=== PATIENT | female | born 1945 | race Caucasian/White ===

== ENCOUNTER 2017-02-02 20:36 | Emergency (ER) | payer BC, MEDICARE ==
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
[2017-02-02] MEDS ORDERED: HYDROCODONE/APAP 5/325MG TABLET PO ONE (22:38)
[2017-02-02] MEDS ORDERED: CYCLOBENZAPRINE 10MG TABLET PO ONE (22:38)
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
== END 2017-02-02 22:47 | disposition home or self-care (01) ==
LOC: ER 20:36
DX: S16.1XXA Strain of muscle, fascia and tendon at neck level, initial encounter (principal); M47.812 Spondylosis without myelopathy or radiculopathy, cervical region; R20.2 Paresthesia of skin; V43.62XA Car passenger injured in collision with other type car in traffic accident, initial encounter
CPT/HCPCS: 70450; 72125; 99283; 99284

== ENCOUNTER 2017-12-28 21:21 | Observation (INO) | payer BC, MEDICARE ==
--- NOTE | 2017-12-28 21:43 | Emergency Department Record ---
History of Present Illness - General Chief Complaint: Palpitations Stated Complaint: AFIB Time Seen by Provider: 12/28/17 21:31 Source: Patient Mode of Arrival: Ambulatory Limitations: No limitations - History of Present Illness Initial Comments: The patient is here due to the onset of irregular heart beating about an hour ago. She does have mild SOB with exertion but denies any pain. She has a hx of similar issues and last was in Afib about 6 months ago. She denies any hx of CAD and did have a neg heart catheterization about 8 years ago. The patient states she has had Afib about 5 times and has always converted on her own. MD Complaint: Atrial fibrillation, "Heart racing", Palpitations Onset/Timin -: Minutes(s) Context: Occurred during rest Arrythmia History: Atrial fibrillation, Other Associated Symptoms: Shortness of breath Treatments Prior to Arrival: Beta-alton - Related Data Allergies Allergy/AdvReac Type Severity Reaction Status Date / Time ciprofloxacin [From CIPRO] Allergy Unknown HIVES Verified 02/02/17 20:48 ciprofloxacin HCl Allergy Unknown HIVES Verified 02/02/17 20:48 [From CIPRO] clindamycin [CLINDAMYCIN] Allergy Unknown HIVES Verified 02/02/17 20:48 ibuprofen [From MOTRIN] Allergy Unknown VOMITING Verified 02/02/17 20:48 nitrofurantoin Allergy Unknown HIVES Verified 02/02/17 20:48 macrocrystalline [From MACRODANTIN] Penicillins [PENICILLINS] Allergy Unknown HIVES Verified 02/02/17 20:48 propoxyphene napsylate Allergy Unknown HIVES Verified 02/02/17 20:48 [From DARVOCET-N 100] Vdciyht-Agp-Dah Reductase Allergy Unknown HIVES Verified 02/02/17 20:48 Inhibitor [PPCALWH-ETV-KJV REDUCTASE INHIBITOR] tramadol HCl [From ULTRAM] Allergy Unknown HIVES Verified 02/02/17 20:48 Travel Screening - Travel/Exposure Within Last 30 Days Have you traveled within the last 30 days?: No - Travel Symptoms Symptom Screening: None Review of Systems Constitutional: Denies: Chills, Fever Eyes: Denies: Eye discharge ENT: Denies: Throat pain Respiratory: Denies: Cough, Dyspnea Cardiovascular: Reports: Arrhythmia. Denies: Chest pain Endocrine: Denies: Fatigue Gastrointestinal: Denies: Abdominal pain Genitourinary: Denies: Dysuria Musculoskeletal: Denies: Arthralgia Skin: Denies: Bruising Past Medical History - SOCIAL HISTORY Smoking Status: Former smoker Alcohol Use: None Drug Use: None - RESPIRATORY Hx Respiratory Disorders: Yes Hx Sleep Apnea: Yes Hx of CPAP: Yes Comment:: chronic sinusitis - CARDIOVASCULAR Hx Cardio Disorders: Yes Hx Cardiac Cath: Yes (2009) Hx Edema: Yes (right ankle) Hx Hypertension: Yes Hx Irregular Heartbeat: Yes (AFIB) - NEURO Hx Neuro Disorders: No - GI Hx GI Disorders: Yes Hx Reflux: Yes Hx Hiatal Hernia: Yes - Hx Genitourinary Disorders: Yes Hx Bladder Problem: Yes Hx Kidney Stones: Yes Hx UTI: Yes Comment:: chronic UTI - ENDOCRINE Hx Endocrine Disorders: Yes Hx Thyroid Disease: Yes - MUSCULOSKELETAL Hx Musculoskeletal Disorders: Yes Hx Arthritis: Yes - PSYCH Hx Psych Problems: No - HEMATOLOGY/ONCOLOGY Hx Hematology/Oncology Disorders: No Family Medical History Any Significant Family History?: Yes Hx Anxiety: Brother/Sister Hx Diabetes: Mother Hx Heart Disease: Father, Mother, Brother/Sister, Grandparents Hx HTN: Brother/Sister Hx Resp Disorders: Father Physical Exam - General General Appearance: Alert, Oriented x3, Cooperative, No acute distress - Head Head exam: Atraumatic, Normocephalic, Normal inspection - Eye Eye exam: Normal appearance, PERRL, EOMI - ENT Throat exam: Normal inspection. negative: Tonsillar erythema, Tonsillar exudate - Neck Neck exam: Normal inspection, Full ROM. negative: Tenderness - Respiratory Respiratory exam: Normal lung sounds bilaterally. negative: Respiratory distress - Cardiovascular Cardiovascular Exam: Irregular rhythm. negative: Regular rate, Normal rhythm, Diastolic murmur, Systolic murmur - GI/Abdominal GI/Abdominal exam: Soft, Normal bowel sounds. negative: Tenderness - Extremities Extremities exam: Normal inspection, Full ROM, Normal capillary refill. negative: Tenderness - Back Back exam: Reports: Normal inspection - Neurological Neurological exam: Alert, Oriented X3. negative: Motor sensory deficit Course Vital Signs 12/28/17 21:23 Temperature 97.8 F Pulse Rate 122 H Respiratory 20 Rate Blood Pressure 133/109 Pulse Ox 97 - Reevaluation(s) Reevaluation #1: The patient is doing a lot better at this time. She denies any pain or discomfort and her HR is running 90-110. 12/28/17 21:57 Reevaluation #2: The patient is doing very well at this time. She is resting comfortably and in Afib at a rate around 100. 12/28/17 23:00 Reevaluation #3: The patient is doing very well at this time. She denies any CP or SOB but is still in Afib. Due to that fact we will give her a dose of Lovenox and initiate a short stay admission for monitoring. 12/28/17 23:26 Medical Decision Making - Data Complexity MDM Data: Labs Ordered and/or Reviewed, EKG Ordered and/or Reviewed - Lab Data Result diagrams: 12/28/17 21:45 12/28/17 21:45 - EKG Data -: EKG Interpreted by Me EKG: Abnormal EKG (Afib at 129, LBBB(old)) Disposition Disposition: Admit Clinical Impression: Atrial fibrillation Qualifiers: Atrial fibrillation type: unspecified Qualified Code(s): I48.91 - Unspecified atrial fibrillation Disposition: Still a Patient at [facility] Decision to Admit: Admit from ER Decision to Admit Date: 12/28/17 Decision to Admit Time: 23:27 Accepting Physician: Rosanne Munoz Discussed w/Accepting Physician: 23:27 Condition: (2) Stable Forms: Patient Portal Access Time of Disposition: 23:27 Quality - Quality Measures Quality Measures: N/A - Blood Pressure Screening View Details: Yes Does Patient Have Any of the Following: Active Dx of HTN Blood Pressure Classification: Hypertensive Reading Systolic Measurement: 133 Diastolic Measurement: 109 Screening for High Blood Pressure: Patient Exclusion, Hx of HTN [G9744]
[2017-12-28 21:53] LABS: BASO % 0.4 % (0-6); GRAN % 56.3 % (47-80); HEMATOCRIT 40.3 % (35.0-47.0); HEMOGLOBIN 13.5 gm/dl (11.6-16.0); LYMPH % 30.7 % (16-45); MEAN CELL VOLUME 93.1 fl (81-97); MEAN CORPUSCULAR HEMOGLOBIN 31.2 pg (27-33); MEAN CORPUSCULAR HGB CONC 33.5 g/dl (32-36); MEAN PLATELET VOLUME 10.2 fl (7.4-10.4); MONO % 10.6 % (0-9); PLATELET COUNT 224 K/uL (130-400); RED BLOOD COUNT 4.33 M/uL (3.80-5.40); RED CELL DISTRIBUTION WIDTH 12.6 % (11.5-14.5); WHITE BLOOD COUNT W/O DIFF 6.9 K/uL (4.2-12.2)
[2017-12-28 22:12] LABS: ALB/GLOB RATIO 1.4 (1.1-1.8); ALBUMIN 4.3 g/dL (4.0-5.0); ALKALINE PHOSPHATASE 83 U/L (35-104); ALT/SGPT 13 U/L (<33); AST/SGOT 17 U/L (10.0-35.0); BLOOD UREA NITROGEN 27 mg/dL (8-23); CREATINE PHOSPHOKINASE 100 U/L (26-192); CREATININE 1.2 mg/dL (0.5-0.9); EST GLOMERULAR FILTRATION RATE 47 mL/min; GLUCOSE,RANDOM 123 mg/dL (74-109); TOTAL PROTEIN 7.4 g/dL (6.6-8.7)
[2017-12-28 22:53] LABS: PARTIAL THROMBOPLASTIN TIME 27.1 SECONDS (24.5-39.1)
[2017-12-28] MEDS ORDERED: METOPROLOL TART 5 MG/5 ML VIAL IV ONE (23:25)
[2017-12-28] MEDS ORDERED: ENOXAPARIN 100 MG/ML SYR SQ ONE (23:27)
[2017-12-29] MEDS ORDERED: ACETAMINOPHEN 500 MG TABLET PO PRN (00:20)
[2017-12-29] MEDS ORDERED: PANTOPRAZOLE SODIUM 40 MG TABLET PO SCH (07:00)
[2017-12-29] MEDS ORDERED: METOPROLOL TART 50 MG TABLET PO SCH (10:00)
[2017-12-29] MEDS ORDERED: FUROSEMIDE 40 MG TABLET PO SCH (10:00)
[2017-12-29] MEDS ORDERED: LISINOPRIL 20 MG TABLET PO SCH (10:00)
[2017-12-29] MEDS ORDERED: ASPIRIN 325 MG TAB ENTERIC-COATED PO SCH (10:00)
[2017-12-29] MEDS ORDERED: SOTALOL HCL 80 MG TABLET PO SCH (10:00)
[2017-12-29] MEDS ORDERED: POTASSIUM CHLORIDE 20 MEQ TABLET PO SCH (10:00)
--- NOTE | 2017-12-29 10:34 | History & Physical ---
History of Present Illness - Date of Service Date of Service for History & Physical: 12/29/17 - History of Present Illness Admitting Diagnosis: 1. New Onset Atrial Fibrillation History of Present Illness: Mrs. Gomez is a 72 year-old female who presented to the ED on with onset of irregular heart beating about an hour. She c/o mild SOB with exertion but denied any pain. She has a hx of afib and last episode was about 6 months ago. She denies any hx of CAD and did have a neg heart catheterization about 8 years ago. The patient stated she has had Afib about 5 times and has always converted on her own. History includes: ex-smoker, RANDY ( uses cpap), chronic sinusitis, HTN, hiatal hernia, GERD, and arthritis. In the ED, her BP was 133/109, HR 122, RR 20, 97% oxygen on room air and T 97.8. Her EKG demonstrated afib with a rate around 100. CBC and CMP unremarkable. She was admitted for observation of afib and lovenox 100mg SC administered. 12/29/17 1000: Pt. is sitting up in her chair. She denies chest pain/ irregular heart beating. She is on tele and converted to NSR around 0600. Will plan to d/c home this afternoon and pt to f/u with her research analyst and PCP regarding afib management. She has not been on long-term anticoagulation, she does take 325mg of ASA and betapace 40mg BID. PCP: Dr. Corrigan Development Technical Lead: [facility] (Dr. Almonte) Travel Screening - Travel/Exposure Within Last 30 Days Have you traveled within the last 30 days?: No - Travel/Exposure Within Last Year Have you traveled outside the [place] in the last year?: No - Additonal Travel Details Have you been exposed to anyone with a communicable illness?: No - Travel Symptoms Symptom Screening: None Review of Systems Constitutional: Denies: Chills, Fever Eyes: Denies: Eye discharge ENT: Denies: Throat pain Respiratory: Denies: Cough, Dyspnea Cardiovascular: Reports: Arrhythmia. Denies: Chest pain Endocrine: Denies: Fatigue Gastrointestinal: Denies: Abdominal pain Genitourinary: Denies: Dysuria Musculoskeletal: Denies: Arthralgia Skin: Denies: Bruising Past Medical History - SOCIAL HISTORY Smoking Status: Former smoker Alcohol Use: Occasional Drug Use: None - RESPIRATORY Hx Respiratory Disorders: Yes Hx Sleep Apnea: Yes Hx of CPAP: Yes Comment:: chronic sinusitis - CARDIOVASCULAR Hx Cardio Disorders: Yes Hx Cardiac Cath: Yes (2009) Hx Edema: Yes (right ankle) Hx Hypertension: Yes Hx Irregular Heartbeat: Yes (AFIB) - NEURO Hx Neuro Disorders: No - GI Hx GI Disorders: Yes Hx Reflux: Yes Hx Hiatal Hernia: Yes - Hx Genitourinary Disorders: Yes Hx Bladder Problem: Yes Hx Kidney Stones: Yes Hx UTI: Yes Comment:: chronic UTI - ENDOCRINE Hx Endocrine Disorders: Yes Hx Thyroid Disease: Yes - MUSCULOSKELETAL Hx Musculoskeletal Disorders: Yes Hx Arthritis: Yes - PSYCH Hx Psych Problems: No - HEMATOLOGY/ONCOLOGY Hx Hematology/Oncology Disorders: No Family Medical History Any Significant Family History?: Yes Hx Anxiety: Brother/Sister Hx Diabetes: Mother Hx Heart Disease: Father, Mother, Brother/Sister, Grandparents Hx HTN: Brother/Sister Hx Resp Disorders: Father H&P Meds/Allergies - Allergies Allergies: Allergies Allergy/AdvReac Type Severity Reaction Status Date / Time ciprofloxacin [From CIPRO] Allergy Unknown HIVES Verified 02/02/17 20:48 ciprofloxacin HCl Allergy Unknown HIVES Verified 02/02/17 20:48 [From CIPRO] clindamycin [CLINDAMYCIN] Allergy Unknown HIVES Verified 02/02/17 20:48 ibuprofen [From MOTRIN] Allergy Unknown VOMITING Verified 02/02/17 20:48 nitrofurantoin Allergy Unknown HIVES Verified 02/02/17 20:48 macrocrystalline [From MACRODANTIN] Penicillins [PENICILLINS] Allergy Unknown HIVES Verified 02/02/17 20:48 propoxyphene napsylate Allergy Unknown HIVES Verified 02/02/17 20:48 [From DARVOCET-N 100] Xvtqbvp-[id number]-Wuk Reductase Allergy Unknown HIVES Verified 02/02/17 20:48 Inhibitor [[id number] REDUCTASE INHIBITOR] tramadol HCl [From ULTRAM] Allergy Unknown HIVES Verified 02/02/17 20:48 - Active Medications Active Medications: Current Medications Acetaminophen (Tylenol 500mg Tab) 500 mg PO Q6H PRN PRN Reason: PAIN - MILD(1-4)/FEVER Aspirin (Ecotrin (Ec)) 325 mg PO DAILY GARCIA Furosemide (Lasix) 40 mg PO BID GARCIA Lisinopril (Zestril) 20 mg PO DAILY GARCIA Magnesium Oxide (Mag Ox) 400 mg PO [id number] [facility] Metoprolol Tartrate (Lopressor) 50 mg PO DAILY GARCIA Pantoprazole Sodium (Protonix) 40 mg PO DAILYAC [facility] Last Admin: 12/29/17 06:06 Dose: 40 mg Potassium Chloride (Klor-Con) 20 meq PO BID GARCIA Sotalol HCl (Betapace) 40 mg PO BID [facility] Physical Exam - Vital Signs Vital Signs: Vital Signs - Last 24 Hrs Temp Pulse Pulse Pulse Resp BP BP 12/29/17 07:55 97.9 F 60 17 156/76 12/29/17 05:42 74 18 137/83 12/29/17 02:00 76 18 124/81 12/29/17 00:20 97.7 F 82 20 138/92 12/28/17 23:50 88 109/83 12/28/17 23:41 115 H 18 116/92 12/28/17 22:24 101 H 22 119/72 12/28/17 21:23 97.8 F 122 H 20 133/109 Pulse Ox 12/29/17 07:55 96 12/29/17 05:42 95 12/29/17 02:00 94 L 12/29/17 00:20 97 12/28/17 23:50 12/28/17 23:41 97 12/28/17 22:24 97 12/28/17 21:23 97 - General General Appearance: Alert, Oriented x3, Cooperative, No acute distress Limitations: No limitations - Head Head exam: Atraumatic, Normocephalic, Normal inspection - Eye Eye exam: Normal appearance, PERRL, EOMI - ENT Throat exam: Normal inspection. negative: Tonsillar erythema, Tonsillar exudate - Neck Neck exam: Normal inspection, Full ROM. negative: Tenderness - Respiratory Respiratory exam: Normal lung sounds bilaterally. negative: Respiratory distress - Cardiovascular Cardiovascular Exam: Normal heart sounds. negative: Regular rate, Normal rhythm , Diastolic murmur, Systolic murmur - GI/Abdominal GI/Abdominal exam: Soft, Normal bowel sounds. negative: Tenderness - Extremities Extremities exam: Normal inspection, Full ROM, Normal capillary refill. negative: Tenderness - Back Back exam: Reports: Normal inspection - Neurological Neurological exam: Alert, Oriented X3. negative: Motor sensory deficit Results - Labs Result Diagrams: 12/28/17 21:45 12/28/17 21:45 Labs Last 24 Hours: Laboratory Results - last 24 hr 12/28/17 12/28/17 12/28/17 21:45 21:45 21:45 WBC 6.9 RBC 4.33 Hgb 13.5 Hct 40.3 MCV 93.1 MCH 31.2 MCHC 33.5 RDW 12.6 Plt Count 224 MPV 10.2 Gran % 56.3 Lymphocytes % 30.7 Monocytes % 10.6 H Eosinophils % 2.0 Basophils % 0.4 PT 10.0 INR 1.0 APTT 27.1 Sodium 139 Potassium 4.0 Chloride 99 Carbon Dioxide 26.0 Anion Gap 14.0 BUN 27 H Creatinine 1.2 H Estimated GFR 47 Random Glucose 123 H Calcium 9.9 Total Bilirubin 0.30 AST 17 ALT 13 Alkaline Phosphatase 83 Creatine Kinase 100 CK-MB (CK-2) 2.0 Troponin T < 0.010 Total Protein 7.4 Albumin 4.3 Globulin 3.1 Albumin/Globulin Ratio 1.4 12/29/17 03:00 WBC RBC Hgb Hct MCV MCH MCHC RDW Plt Count MPV Gran % Lymphocytes % Monocytes % Eosinophils % Basophils % PT INR APTT Sodium Potassium Chloride Carbon Dioxide Anion Gap BUN Creatinine Estimated GFR Random Glucose Calcium Total Bilirubin AST ALT Alkaline Phosphatase Creatine Kinase CK-MB (CK-2) Troponin T < 0.01 Total Protein Albumin Globulin Albumin/Globulin Ratio VTE H&P Assessment - Risk for VTE Risk for VTE: Yes Risk Level: High Risk Assessment Date: 12/29/17 Risk Assessment Time: 10:34 VTE Orders Placed or Will Be Placed: Yes Plan - Detailed Diagnosis and Plan (1) A-fib Current Visit: Yes Status: Chronic Qualifiers: Atrial fibrillation type: unspecified Qualified Code(s): I48.91 - Unspecified atrial fibrillation Base Code: I48.91 - UNSPECIFIED ATRIAL FIBRILLATION Comment: 12/29/17: -100mg SC lovenox administered in ED -Converted to NSR on tele around 0600 -Continue betapace 40mg bid, metoprolol 50mg daily, ASA 325mg daily -Pt. to f/u with her research analyst regarding potential need for long-term anticoagulation (2) At risk for deep venous thrombosis Current Visit: Yes Status: Acute Base Code: Z91.89 - OT PERSONAL RISK FACTORS, NOT ELSEWHERE CLASSIFIED Comment: 12/29/17: -high risk for DVT secondary to transient afib -lovenox 100mg sc once- administered in ED -Continue ASA 325mg daily (3) Full code status Current Visit: Yes Status: Acute Base Code: Z78.9 - OTHER SPECIFIED HEALTH STATUS Comment: 12/29/17: -pt is a full code
--- NOTE | 2017-12-29 12:41 | Discharge Summary ---
Providers Discharge Summary Date: 12/29/17 Date of admission: 12/29/17 00:10 Expected Date of Discharge: 12/29/17 Attending physician: KENAN SHEN Primary care physician: Dr. Corrigan Physical Exam - Vital Signs Vital Signs: Vital Signs - Last 24 Hrs Temp Pulse Pulse Pulse Resp BP BP 12/29/17 07:55 97.9 F 60 17 156/76 12/29/17 05:42 74 18 137/83 12/29/17 02:00 76 18 124/81 12/29/17 00:20 97.7 F 82 20 138/92 12/28/17 23:50 88 109/83 12/28/17 23:41 115 H 18 116/92 12/28/17 22:24 101 H 22 119/72 12/28/17 21:23 97.8 F 122 H 20 133/109 Pulse Ox 12/29/17 07:55 96 12/29/17 05:42 95 12/29/17 02:00 94 L 12/29/17 00:20 97 12/28/17 23:50 12/28/17 23:41 97 12/28/17 22:24 97 12/28/17 21:23 97 - General General Appearance: Alert, Oriented x3, Cooperative, No acute distress Limitations: No limitations - Head Head exam: Atraumatic, Normocephalic, Normal inspection - Eye Eye exam: Normal appearance, PERRL, EOMI - ENT Throat exam: Normal inspection. negative: Tonsillar erythema, Tonsillar exudate - Neck Neck exam: Normal inspection, Full ROM. negative: Tenderness - Respiratory Respiratory exam: Normal lung sounds bilaterally. negative: Respiratory distress - Cardiovascular Cardiovascular Exam: Normal heart sounds. negative: Regular rate, Normal rhythm , Diastolic murmur, Systolic murmur - GI/Abdominal GI/Abdominal exam: Soft, Normal bowel sounds. negative: Tenderness - Extremities Extremities exam: Normal inspection, Full ROM, Normal capillary refill. negative: Tenderness - Back Back exam: Reports: Normal inspection - Neurological Neurological exam: Alert, Oriented X3. negative: Motor sensory deficit Hospitalization - Hospitalization Admission Diagnosis: 1. New Onset Atrial Fibrillation - Problem List/Discharge Diagnosis (1) A-fib Current Visit: Yes Status: Chronic Discharge Diagnosis: Atrial fibrillation type: unspecified Qualified Code(s): I48.91 - Unspecified atrial fibrillation Base Code: I48.91 - UNSPECIFIED ATRIAL FIBRILLATION Comment: 12/29/17: -100mg SC lovenox administered in ED -Converted to NSR on tele around 0600 -Continue betapace 40mg bid, metoprolol 50mg daily, ASA 325mg daily -Pt. to f/u with her pallet stone inserter regarding potential need for long-term anticoagulation (2) At risk for deep venous thrombosis Current Visit: Yes Status: Acute Base Code: Z91.89 - OTH PERSONAL RISK FACTORS, NOT ELSEWHERE CLASSIFIED Comment: 12/29/17: -high risk for DVT secondary to transient afib -lovenox 100mg sc once- administered in ED -Continue ASA 325mg daily (3) Full code status Current Visit: Yes Status: Acute Base Code: Z78.9 - OTHER SPECIFIED HEALTH STATUS Comment: 12/29/17: -pt is a full code - Hospitalization Course Disposition: Home, Self-Care Hospital Course: Mrs. Gomez is a 72 year-old female who presented to the ED on with onset of irregular heart beating about an hour. She c/o mild SOB with exertion but denied any pain. She has a hx of afib and last episode was about 6 months ago. She denies any hx of CAD and did have a neg heart catheterization about 8 years ago. The patient stated she has had Afib about 5 times and has always converted on her own. History includes: ex-smoker, RANDY ( uses cpap), chronic sinusitis, HTN, hiatal hernia, GERD, and arthritis. In the ED, her BP was 133/109, HR 122, RR 20, 97% oxygen on room air and T 97.8. Her EKG demonstrated afib with a rate around 100. CBC and CMP unremarkable. She was admitted for observation of afib and lovenox 100mg SC administered. 12/29/17 1000: Pt. is sitting up in her chair. She denies chest pain/ irregular heart beating. She is on tele and converted to NSR around 0600. Will plan to d/c home this afternoon and pt to f/u with her pallet stone inserter and PCP regarding afib management. She has not been on long-term anticoagulation, she does take 325mg of ASA and betapace 40mg BID. 12/29/17 1200: Pt. remains in NSR, she continues to deny any chest pain/ irregular heart racing. Plan to d/c home and pt to f/u with her pallet stone inserter regarding afib. PCP: Dr. Corrigan Gaming Table Operator: [facility]ANKIE (Dr. Almonte) Procedures: Cardiology Procedures 12/28/17 21:45 Stitch Burnisher NOW EKG NOW 12/29/17 00:20 Stitch Burnisher .Continuous EKG QDX2@0600 Abnormal Labs: Abnormal Lab Results 12/28/17 12/28/17 Range/Units 21:45 21:45 Monocytes % 10.6 H (0-9) % BUN 27 H (8-23) mg/dL Creatinine 1.2 H (0.5-0.9) mg/dL Random Glucose 123 H (74-109) mg/dL Condition at Discharge: (2) Stable VTE Discharge VTE Reason For No Overlap Therapy: Not Indicated (on ASA 325mg daily) Discharge Medications - Discharge Medications Home Medications: Ambulatory Orders Aspirin/Calcium Carbonate/Mag [Aspirin Buffered 325 mg Tab] 325 mg PO [id number] 04/22/14 [Last Taken 12/28/17] Calcium Carb/Vitamin D3/Vit K1 [Citracal Soft Chew] 1 each PO [id number] [Last Taken 12/28/17] Cranberry 400 mg PO [id number] 04/22/14 [Last Taken 12/28/17] Estrogens, Conjugated [Premarin] 42.5 gm VG WEEKLY 04/22/14 [Last Taken 12/28/17 ] Fish Oil/Dha/Epa [Fish Oil 1,200 mg Fish Oil] 1,200 mg PO [id number] 04/22/14 [ Last Taken 12/28/17] Furosemide [Lasix] 40 mg PO BID 04/22/14 [Last Taken 12/28/17] Magnesium Oxide [Mag Ox] 125 mg PO [id number] 04/22/14 [Last Taken 12/28/17] Metoprolol Tartrate [Lopressor] 50 mg PO DAILY 04/22/14 [Last Taken 12/28/17] Omeprazole [Prilosec] 20 mg PO DAILY 04/22/14 [Last Taken 12/28/17] Potassium Chloride [Klor-Con] 20 meq PO BID 04/22/14 [Last Taken 12/28/17] Sotalol HCl [Betapace] 40 mg PO BID 04/22/14 [Last Taken 12/28/17] Lisinopril 20 mg PO DAILY 09/04/14 [Last Taken 12/28/17] Discharge Plan - Discharge Instructions Activity at Discharge: Increase Activity as Tolerated Diet at Discharge: Advance to Usual Diet Additional Instructions: Follow up with your PCP within 1 week Follow up with your pallet stone inserter regarding a-fib management- possible need for long-term anticoagulation Return to the ED if your symptoms worsen or if you experience any chest pain Quality Measures - Quality Measures Quality Measures: Atrial Fibrillation & Atrial Flutter: Chronic Anticoagulation Therapy, Advance Directives, Documentation of Current Medications in Medical Record, Elder Maltreatment Screen and Follow-Up Plan, Screening for High Blood Pressure and F/U Documented - Current Medications Quality Measure: Measure #130: Documentation of Current Medications Documentation of Current Medications: <Current Medications Documented/Reviewed> [G6266] - Blood Pressure Screening Quality Measure: Screening for High Blood Pressure and Follow-Up Documented Does Patient Have Any of the Following: Active Dx of HTN Blood Pressure Classification: Hypertensive Reading Systolic Measurement: 133 Diastolic Measurement: 109 Screening for High Blood Pressure: Patient Exclusion, Hx of HTN [G9744] - Atrial Fibrillation and Atrial Flutter Quality Measure: Atrial Fibrillation & Atrial Flutter: Chronic Anticoagulation Therapy Does Patient Have Any of the Following: No CHADS2 Risk Stratification: Hypertension Risk Stratification Summary: No risk factors or only one moderate risk factor exists. [G8970] Anticoagulation Therapy: Patient Not Eligible [G8970] - Advance Directives Quality Measure: Measure #47: Care Plan Advance Directives Established: No Advance Directives Information Provided To Patient: Yes Advance Directives on File: No Living Will: No Power of Guard Chief: No Advance Care Planning: <Care Plan/Decision Maker Documented; Discussed & Documented> [1123F] - Elder Abuse Suspicion Index Screening: Elder Abuse Suspicion Index Screening Rely on people for bathing, dressing, shopping, banking, etc: No Prevented from getting food, clothes, medication, etc: No Made to feel shamed or threatened by someone: No Forced to sign papers or use money against will: No Feel afraid, touched in ways not wanted or hurt physically: No Poor eye contact, withdrawn, malnourished, cuts or bruises: No Screening Result: Negative result EASI Reference Information: Rusty BENJAMIN, Andrade C, Flores D, Fei Lin.Development and validation of a tool to assist physicians identification of elder abuse: The Elder Abuse Suspicion Index (EASI ). Journal of Elder Abuse and Neglect, 2008; 20 (3): 276-300. - Elder Maltreatment Screen Quality Measures: Elder Maltreatment Screen and Follow-Up Plan Elder Maltreatment Screen: <Negative, No Follow-Up Plan Required> [G8734]
[2017-12-29] MEDS ORDERED: MAGNESIUM OXIDE 400 MG TABLET PO SCH (16:00)
== END 2017-12-29 15:50 | disposition home or self-care (01) ==
LOC: ER 21:21 → MEDSURG 12-29 00:10
PROVIDERS: ADMIT Internal Medicine; ATTEND Internal Medicine
DX: I48.91 Unspecified atrial fibrillation (principal); R06.02 Shortness of breath; I10 Essential (primary) hypertension; E03.9 Hypothyroidism, unspecified; Z95.5 Presence of coronary angioplasty implant and graft; Z87.442 Personal history of urinary calculi; Z87.891 Personal history of nicotine dependence
CPT/HCPCS: 80053; 82550; 82553; 84484; 85025; 85610; 85730; 93005; 93010; 96372; 96374; 99220; 99285; J1650

== ENCOUNTER 2018-06-08 08:50 | Emergency (ER) | payer BC, MEDICARE ==
--- NOTE | 2018-06-08 09:01 | Emergency Department Record ---
History of Present Illness - General Chief Complaint: Palpitations Stated Complaint: FAST HEART RATE Time Seen by Provider: 06/08/18 08:54 Source: Patient, EMS Mode of Arrival: Ambulatory Limitations: No limitations - History of Present Illness Initial Comments: 72 yo male presents with rapid, irregular HR, short of breath, and chest pressure the last hour. She had a brief similar episode last Tuesday. She has a 10 year history of occasional Afib. She has a 9:15am appointment today with Dr Almonte. She is not on blood thinners. No other recent changes in her health. She is on Betapace. MD Complaint: Atrial fibrillation, Irregular heart beat -: Hour(s) (1) Context: Occurred during rest Arrythmia History: Atrial fibrillation Associated Symptoms: Chest pain, Shortness of breath - Related Data Allergies Allergy/AdvReac Type Severity Reaction Status Date / Time ciprofloxacin [From CIPRO] Allergy Unknown HIVES Verified 06/08/18 08:54 ciprofloxacin HCl Allergy Unknown HIVES Verified 06/08/18 08:54 [From CIPRO] clindamycin [CLINDAMYCIN] Allergy Unknown HIVES Verified 06/08/18 08:54 ibuprofen [From MOTRIN] Allergy Unknown VOMITING Verified 06/08/18 08:54 nitrofurantoin Allergy Unknown HIVES Verified 06/08/18 08:54 macrocrystalline [From MACRODANTIN] Penicillins [PENICILLINS] Allergy Unknown HIVES Verified 06/08/18 08:54 propoxyphene napsylate Allergy Unknown HIVES Verified 06/08/18 08:54 [From DARVOCET-N 100] Phieqja-Vuw-Sbw Reductase Allergy Unknown HIVES Verified 06/08/18 08:54 Inhibitor [EPPVNWJ-BRM-XUN REDUCTASE INHIBITOR] tramadol HCl [From ULTRAM] Allergy Unknown HIVES Verified 06/08/18 08:54 Review of Systems Constitutional: Denies: Chills, Fever, Malaise, Weakness Eyes: Denies: Eye discharge ENT: Denies: Congestion, Throat pain Respiratory: Reports: Dyspnea. Denies: Cough, Hemoptysis, Stridor, Wheezes Cardiovascular: Reports: Chest pain, Palpitations. Denies: Dyspnea on exertion , Edema, Syncope Endocrine: Denies: Fatigue, Polydipsia, Polyuria Gastrointestinal: Denies: Abdominal pain, Diarrhea, Nausea, Vomiting Genitourinary: Denies: Dysuria Musculoskeletal: Denies: Arthralgia, Back pain, Myalgia Skin: Denies: Bruising, Change in color, Rash Neurological: Denies: Headache, Weakness Psychiatric: Denies: Anxiety Hematological/Lymphatic: Denies: Easy bleeding, Easy bruising Past Medical History - SOCIAL HISTORY Smoking Status: Former smoker Drug Use: None - RESPIRATORY Hx Respiratory Disorders: Yes Hx Sleep Apnea: Yes Hx of CPAP: Yes Comment:: chronic sinusitis - CARDIOVASCULAR Hx Cardio Disorders: Yes Hx Cardiac Cath: Yes (2009) Hx Edema: Yes (right ankle) Hx Hypertension: Yes Hx Irregular Heartbeat: Yes (AFIB) - NEURO Hx Neuro Disorders: No - GI Hx GI Disorders: Yes Hx Reflux: Yes Hx Hiatal Hernia: Yes - Hx Genitourinary Disorders: Yes Hx Bladder Problem: Yes Hx Kidney Stones: Yes Hx UTI: Yes Comment:: chronic UTI - ENDOCRINE Hx Endocrine Disorders: Yes Hx Thyroid Disease: Yes - MUSCULOSKELETAL Hx Musculoskeletal Disorders: Yes Hx Arthritis: Yes - PSYCH Hx Psych Problems: No - HEMATOLOGY/ONCOLOGY Hx Hematology/Oncology Disorders: No Family Medical History Hx Anxiety: Brother/Sister Hx Diabetes: Mother Hx Heart Disease: Father, Mother, Brother/Sister, Grandparents Hx HTN: Brother/Sister Hx Resp Disorders: Father Physical Exam - General General Appearance: Alert, Oriented x3, Cooperative, No acute distress Limitations: No limitations - Head Head exam: Atraumatic, Normal inspection - Eye Eye exam: Normal appearance, PERRL. negative: Conjunctival injection, Scleral icterus - ENT ENT exam: Normal exam, Mucous membranes moist Ear exam: Normal external inspection Nasal Exam: Normal inspection Mouth exam: Normal external inspection - Neck Neck exam: Normal inspection - Respiratory Respiratory exam: Normal lung sounds bilaterally. negative: Accessory muscle use, Chest wall tenderness, Decreased breath sounds, Prolonged expiratory, Respiratory distress, Rhonchi, Wheezes - Cardiovascular Cardiovascular Exam: Irregular rhythm, Tachycardia. negative: Regular rate, Normal rhythm, Diastolic murmur, Systolic murmur Peripheral Pulses: 2+: Radial (R), Radial (L) - GI/Abdominal GI/Abdominal exam: Soft. negative: Tenderness - Rectal Rectal exam: Deferred - exam: Deferred - Extremities Extremities exam: Pedal edema - Back Back exam: Denies: CVA tenderness (R), CVA tenderness (L) - Neurological Neurological exam: Alert, Oriented X3 - Psychiatric Psychiatric exam: Normal affect, Normal mood - Skin Skin exam: Dry, Intact, Normal color, Warm Course - Reevaluation(s) Reevaluation #1: EKG #1: 09:00 Rate: 104 Rhythm: Afib with LBBB [place]: L Intervals: Qtc 546, LBBB ST segments: CW LBBB Prior: 12/29/17 Afib sinus 06/08/18 09:00 The labs results were reviewed There are no acute significant abnormalities of the CBC There are no acute significant abnormalities of the CMP. The K is 3.7. Given it is low normal PO K given as well. Magnesium is normal at 2 06/08/18 09:42 06/08/18 09:53 The troponin is normal 06/08/18 11:29 [facility] contacted for Dr Chapman 06/08/18 12:16 Dr Chapman accepts the patient for transfer to [facility] to a telemetry bed 06/08/18 12:35 Monitor demonstrates afib 75-85 bpm Medical Decision Making - Lab Data Result diagrams: 06/08/18 09:25 06/08/18 09:25 Critical Care Time Critical Care Time: Yes Total Critical Care Time: 90 Disposition Disposition: Transfer Clinical Impression: Left bundle branch block (LBBB) on electrocardiogram, Atrial fibrillation with rapid ventricular response Disposition: Acute Care Hospital Transfer Transfer To: [facility] Reason For Transfer: Afib with RVR Accepting Physician: Adela Time Discussed w/Accepting Physician: 12:17 Condition: (2) Stable Forms: Patient Portal Access Time of Disposition: 12:17 Quality - Quality Measures Quality Measures: N/A - Blood Pressure Screening View Details: Yes Does Patient Have Any of the Following: Active Dx of HTN Blood Pressure Classification: Hypertensive Reading Systolic Measurement: 117 Diastolic Measurement: 97 Screening for High Blood Pressure: Patient Exclusion, Hx of HTN [G9744]
[2018-06-08] MEDS ORDERED: HEPARIN SODIUM 1000 UNIT/1 ML 10ML VIAL IVP ONE (09:06)
[2018-06-08] MEDS ORDERED: DILTIAZEM HCL 125 MG in 0.9 % SODIUM CHLORIDE 100ML 100 ML IV SCH (09:15)
[2018-06-08] MEDS ORDERED: HEPARIN SODIUM/D5W 25,000 UNITS/500 ML BAG IV SCH (09:15)
[2018-06-08 09:31] LABS: GRAN % 66.3 % (47-80); HEMATOCRIT 40.8 % (35.0-47.0); HEMOGLOBIN 13.5 gm/dl (11.6-16.0); MEAN CELL VOLUME 93.8 fl (81-97); MEAN CORPUSCULAR HGB CONC 33.1 g/dl (32-36); MEAN PLATELET VOLUME 10.5 fl (7.4-10.4); PLATELET COUNT 219 K/uL (130-400); RED BLOOD COUNT 4.35 M/uL (3.80-5.40); RED CELL DISTRIBUTION WIDTH 12.8 % (11.5-14.5); WHITE BLOOD COUNT W/O DIFF 5.7 K/uL (4.2-12.2)
[2018-06-08 09:32] LABS: BASO % 0.5 % (0-6); EOS % 1.7 % (0-6); LYMPH % 22.3 % (16-45); MONO % 9.2 % (0-9)
[2018-06-08 09:39] LABS: BLOOD UREA NITROGEN 25 mg/dL (8-23); CREATININE 0.8 mg/dL (0.5-0.9); EST GLOMERULAR FILTRATION RATE > 60 mL/min
[2018-06-08 09:40] LABS: TOTAL PROTEIN 7.7 g/dL (6.6-8.7)
[2018-06-08 09:42] LABS: GLUCOSE,RANDOM 129 mg/dL (74-109)
[2018-06-08] MEDS ORDERED: POTASSIUM CHLORIDE 20 MEQ TABLET PO ONE (09:42)
[2018-06-08 09:43] LABS: PARTIAL THROMBOPLASTIN TIME 26.2 SECONDS (24.5-39.1); PROTHROMBIN TIME (PATIENT) 10.2 SECONDS (9.5-12.1)
[2018-06-08 09:45] LABS: ALB/GLOB RATIO 1.3 (1.1-1.8); ALBUMIN 4.3 g/dL (4.0-5.0); ALKALINE PHOSPHATASE 73 U/L (35-104); ALT/SGPT 13 U/L (<33); AST/SGOT 16 U/L (10.0-35.0)
[2018-06-08 09:56] LABS: THYROID STIMULATING HORMONE 3.34 uIU/mL (0.270-4.20)
--- NOTE | 2018-06-11 12:19 | RADIOLOGY REPORT ---
DATE: 06/08/2018 at 0909. EXAM: PORTABLE CHEST. HISTORY: Atrial fibrillation, hypertension, and shortness of breath. TECHNIQUE: A single mobile upright view of the chest is obtained. COMPARISON: Portable chest dated 04/22/2014. tiq FINDINGS: The heart projects mildly enlarged. No pulmonary venous hypertension is seen. There is questionable minor patchy airspace disease in the right lung base consistent with atelectasis or less likely infiltrate. The lungs and pleural spaces are otherwise clear. The thoracic aorta is mildly tortuous and atherosclerotic. IMPRESSION: 1. MILD CARDIOMEGALY WITHOUT PULMONARY VENOUS HYPERTENSION. 2. POSSIBLE MINOR PATCHY AIRSPACE DISEASE IN THE RIGHT LUNG BASE CONSISTENT WITH ATELECTASIS OR LESS LIKELY INFILTRATE. Job Number: [id number] [facility]
== END 2018-06-08 15:16 | disposition short-term general hospital (02) ==
LOC: ER 08:50
DX: I48.0 Paroxysmal atrial fibrillation (principal); I44.7 Left bundle-branch block, unspecified; R06.02 Shortness of breath; I10 Essential (primary) hypertension; Z87.891 Personal history of nicotine dependence
CPT/HCPCS: 71045; 80053; 83735; 84443; 84484; 85025; 85610; 85730; 93005; 93010; 96365; 96366; 96368; 96375; 99291; 99292

== ENCOUNTER 2018-06-16 17:44 | Emergency (ER) | payer BC ==
--- NOTE | 2018-06-16 17:55 | Emergency Department Record ---
History of Present Illness - General Chief complaint: Lower Extremity Pain Stated complaint: LEG PAIN Time Seen by Provider: 06/16/18 17:48 Source: Patient Mode of Arrival: Ambulatory Limitations: No limitations - History of Present Illness Initial comments: 72 yo presents with two days of leg cramps. She was sent into the ED by her PCP for dopplers to rule out DVT. She was recent hospitalized for four days and was less active. No swelling. No numbness, tingling, paleness, coolness or claudication symptoms. No history of prior DVT. No cough or shortness of breath. She is on Lovenox and Coumadin. Dr Corrigan is her doctor that sent her to the ED. MD Complaint: Extremity pain -: Days(s) Location: Bilateral History of Same: No -: Yes Myalgia Radiation: Distal Quality: Aching, Other (cramps) Consistency: Constant Improves with: Nothing Worsens with: Nothing, Palpation Associated Symptoms: Denies other symptoms - Related Data Home Medications Medication Instructions Recorded Confirmed Last Taken Amiodarone HCl 400 mg PO DAILY 06/16/18 06/16/18 06/16/18 Azelastine HCl [Astelin] 1 inh NS DAILY 06/16/18 06/16/18 06/16/18 Warfarin Sodium 7.5 mg PO Q48H 06/16/18 06/16/18 Unknown Warfarin Sodium [Coumadin] 10 mg PO Q48H 06/16/18 06/16/18 Unknown Allergies Allergy/AdvReac Type Severity Reaction Status Date / Time ciprofloxacin [From CIPRO] Allergy Unknown HIVES Verified 06/16/18 17:53 ciprofloxacin HCl Allergy Unknown HIVES Verified 06/16/18 17:53 [From CIPRO] clindamycin [CLINDAMYCIN] Allergy Unknown HIVES Verified 06/16/18 17:53 ibuprofen [From MOTRIN] Allergy Unknown VOMITING Verified 06/16/18 17:53 nitrofurantoin Allergy Unknown HIVES Verified 06/16/18 17:53 macrocrystalline [From MACRODANTIN] Penicillins [PENICILLINS] Allergy Unknown HIVES Verified 06/16/18 17:53 propoxyphene napsylate Allergy Unknown HIVES Verified 06/16/18 17:53 [From DARVOCET-N 100] Hcxjcsx-Xan-Sxc Reductase Allergy Unknown HIVES Verified 06/16/18 17:53 Inhibitor [GITIEAK-FLE-FCO REDUCTASE INHIBITOR] tramadol HCl [From ULTRA] Allergy Unknown HIVES Verified 06/16/18 17:53 Review of Systems Constitutional: Denies: Chills, Fever, Weakness Eyes: Denies: Eye discharge ENT: Denies: Congestion, Throat pain Respiratory: Denies: Cough, Dyspnea, Hemoptysis, Stridor, Wheezes Cardiovascular: Denies: Chest pain, Palpitations, Syncope Endocrine: Denies: Fatigue Gastrointestinal: Denies: Abdominal pain, Diarrhea, Nausea, Vomiting Genitourinary: Denies: Dysuria Skin: Denies: Bruising, Change in color, Rash Neurological: Denies: Headache Psychiatric: Denies: Anxiety Hematological/Lymphatic: Denies: Blood Clots, Easy bleeding, Easy bruising, Swollen glands Past Medical History - SOCIAL HISTORY Smoking Status: Former smoker Drug Use: None - RESPIRATORY Hx Respiratory Disorders: Yes Hx Sleep Apnea: Yes Hx of CPAP: Yes Comment:: chronic sinusitis - CARDIOVASCULAR Hx Cardio Disorders: Yes Hx Cardiac Cath: Yes (2009) Hx Edema: Yes (right ankle) Hx Hypertension: Yes Hx Irregular Heartbeat: Yes (AFIB) - NEURO Hx Neuro Disorders: No - GI Hx GI Disorders: Yes Hx Reflux: Yes Hx Hiatal Hernia: Yes - Hx Genitourinary Disorders: Yes Hx Bladder Problem: Yes Hx Kidney Stones: Yes Hx UTI: Yes Comment:: chronic UTI - ENDOCRINE Hx Endocrine Disorders: Yes Hx Thyroid Disease: Yes - MUSCULOSKELETAL Hx Musculoskeletal Disorders: Yes Hx Arthritis: Yes - PSYCH Hx Psych Problems: No - HEMATOLOGY/ONCOLOGY Hx Hematology/Oncology Disorders: No Family Medical History Hx Anxiety: Brother/Sister Hx Diabetes: Mother Hx Heart Disease: Father, Mother, Brother/Sister, Grandparents Hx HTN: Brother/Sister Hx Resp Disorders: Father Physical Exam - General General Appearance: Alert, Oriented x3, Cooperative, No acute distress Limitations: No limitations - Head Head exam: Atraumatic, Normal inspection - Eye Eye exam: Normal appearance. negative: Conjunctival injection - ENT ENT exam: Normal exam Ear exam: Normal external inspection Nasal Exam: Normal inspection Mouth exam: Normal external inspection - Neck Neck exam: Normal inspection - Respiratory Respiratory exam: Normal lung sounds bilaterally. negative: Rhonchi, Stridor, Wheezes - Cardiovascular Cardiovascular Exam: Regular rate, Normal rhythm, Normal heart sounds - Extremities Extremities exam: Normal inspection, Full ROM, Normal capillary refill. negative: Calf tenderness, Joint swelling, Pedal edema, Tenderness - Neurological Neurological exam: Alert, Oriented X3 - Psychiatric Psychiatric exam: Normal affect, Normal mood - Skin Skin exam: Dry, Intact, Normal color, Warm Course - Reevaluation(s) Reevaluation #1: 06/16/18 18:21 The labs were reviewed The BUN and CR are mildly above her baseline at 35 and 1.3 No significant changes on the CBC I discussed the labs with the patient and recommended modest hydration at home with daily weights This is to be rechecked with her PCP The INR is 1.4 She was advised to continue her Lovenox and work with her doctor on when she can stop 06/16/18 18:41 The dopplers were reviewed. No DVT bilateral. 06/16/18 18:44 Medical Decision Making - Lab Data Result diagrams: 06/16/18 17:55 06/16/18 17:55 Disposition Disposition: Discharge Clinical Impression: Bilateral leg cramps Disposition: Home, Self-Care Condition: (1) Good Instructions: Leg Cramps (ED) Additional Instructions: Call your doctor for the next available follow up appointment Return to the ER for a recheck if worse, any new concerns or questions Take the prescriptions provided as directed continuing your Lovenox until your doctor stops it Review this ER visit and the tests performed with your family doctor Forms: Patient Portal Access Time of Disposition: 18:41 Quality - Quality Measures Quality Measures: N/A - Blood Pressure Screening Does Patient Have Any of the Following: No Blood Pressure Classification: Pre-Hypertensive BP Reading Systolic Measurement: 181 Diastolic Measurement: 80 Screening for High Blood Pressure: < Pre-Hypertensive BP, F/U Documented > [ G8950] Pre-Hypertensive Follow-up Interventions: Referral to alternative/primary care provider.
[2018-06-16 18:02] LABS: BASO % 0.5 % (0-6); EOS % 2.1 % (0-6); GRAN % 57.6 % (47-80); HEMATOCRIT 42.3 % (35.0-47.0); HEMOGLOBIN 13.9 gm/dl (11.6-16.0); LYMPH % 27.8 % (16-45); MEAN CELL VOLUME 93.8 fl (81-97); MEAN CORPUSCULAR HEMOGLOBIN 30.8 pg (27-33); MEAN CORPUSCULAR HGB CONC 32.9 g/dl (32-36); MEAN PLATELET VOLUME 10.5 fl (7.4-10.4); PLATELET COUNT 222 K/uL (130-400); RED BLOOD COUNT 4.51 M/uL (3.80-5.40); RED CELL DISTRIBUTION WIDTH 13.1 % (11.5-14.5); WHITE BLOOD COUNT W/O DIFF 6.2 K/uL (4.2-12.2)
[2018-06-16 18:14] LABS: INR 1.4; PROTHROMBIN TIME (PATIENT) 13.8 SECONDS (9.5-12.1)
[2018-06-16 18:16] LABS: CREATININE 1.3 mg/dL (0.5-0.9)
--- NOTE | 2018-06-20 07:10 | US VENOUS DOPPLER REPORT ---
EXAM: BILATERAL LOWER EXTREMITY VENOUS DUPLEX ULTRASOUND HISTORY: BILATERAL LEG PAIN, GREATER ON THE LEFT. TECHNIQUE: Bilateral lower extremity venous Duplex ultrasound was obtained with evaluation of venous compression, color flow, and augmentation. Comparison: None. FINDINGS: No evidence of thrombus involving the right external iliac, profunda femoral, common femoral, proximal/mid/distal femoral, popliteal, gastrocnemius, posterior tibial, peroneal, or anterior tibial veins. No evidence of thrombus involving the left external iliac, common femoral, profunda femoral, proximal/mid/distal femoral, popliteal, gastrocnemius, posterior tibial, peroneal or anterior tibial veins. IMPRESSION: NO EVIDENCE OF DEEP VENOUS THROMBOSIS IN THE RIGHT OR LEFT LOWER EXTREMITY. JOB NUMBER: [id number] [facility]
== END 2018-06-16 18:50 | disposition home or self-care (01) ==
LOC: ER 17:44
DX: R25.2 Cramp and spasm (principal); M79.662 Pain in left lower leg; M79.661 Pain in right lower leg; I10 Essential (primary) hypertension; I48.91 Unspecified atrial fibrillation; Z79.01 Long term (current) use of anticoagulants; Z87.891 Personal history of nicotine dependence
CPT/HCPCS: 80048; 83735; 85025; 85610; 93970; 99283; 99284

== ENCOUNTER 2018-09-03 21:44 | Emergency (ER) | payer BC ==
--- NOTE | 2018-09-03 22:21 | Emergency Department Record ---
History of Present Illness - General Stated complaint: RECTAL LBLEEDING Time Seen by Provider: 09/03/18 22:15 Source: Patient, Family Mode of Arrival: Ambulatory Limitations: No limitations - History of Present Illness Initial comments: 72 yo female presents with a feeling of constipation, unable to have a bowel movement since leaving [facility] after a cardiovascular procedure. She had a Watchman device placed. She was straining for a bowel movement and noted blood. She is on Eliquis. She does report she had bleeding on Eliquis in the past. -: Hour(s) Radiation: None Quality: Other (rectal pressure) Consistency: Intermittent Improves with: None Worsens with: Bowel movement Context: History of GI bleed, Blood thinners Associated Symptoms: Other (constipation) Treatments Prior to Arrival: None - Related Data Home Medications Medication Instructions Recorded Confirmed Last Taken Apixaban [Eliquis] 5 mg PO BID 09/03/18 09/03/18 09/03/18 Previous Rx's Medication Instructions Recorded Polyethylene Glycol 3350 [Miralax] 1 packet PO DAILY #14 packet 09/03/18 Allergies Allergy/AdvReac Type Severity Reaction Status Date / Time ciprofloxacin [From CIPRO] Allergy Unknown HIVES Verified 09/03/18 22:52 ciprofloxacin HCl Allergy Unknown HIVES Verified 09/03/18 22:52 [From CIPRO] clindamycin [CLINDAMYCIN] Allergy Unknown HIVES Verified 09/03/18 22:52 ibuprofen [From MOTRIN] Allergy Unknown VOMITING Verified 09/03/18 22:52 nitrofurantoin Allergy Unknown HIVES Verified 09/03/18 22:52 macrocrystalline [From MACRODANTIN] Penicillins [PENICILLINS] Allergy Unknown HIVES Verified 09/03/18 22:52 propoxyphene napsylate Allergy Unknown HIVES Verified 09/03/18 22:52 [From DARVOCET-N 100] Nxrwtfz-Lba-Qcs Reductase Allergy Unknown HIVES Verified 09/03/18 22:52 Inhibitor [RWIMGFQ-IMM-FOB REDUCTASE INHIBITOR] tramadol HCl [From ULTRAM] Allergy Unknown HIVES Verified 09/03/18 22:52 Review of Systems Constitutional: Denies: Chills, Fever, Weakness Eyes: Denies: Eye discharge ENT: Denies: Congestion, Throat pain Respiratory: Denies: Cough Cardiovascular: Denies: Chest pain, Syncope Endocrine: Denies: Fatigue Gastrointestinal: Reports: Constipation, Hematochezia. Denies: Abdominal pain, Diarrhea, Hematemesis, Nausea, Vomiting Genitourinary: Denies: Dysuria, Urgency Musculoskeletal: Denies: Arthralgia, Back pain, Myalgia Skin: Denies: Bruising, Change in color, Rash Neurological: Denies: Headache Psychiatric: Denies: Anxiety Hematological/Lymphatic: Denies: Easy bleeding, Easy bruising Past Medical History - SOCIAL HISTORY Smoking Status: Former smoker Drug Use: None - RESPIRATORY Hx Respiratory Disorders: Yes Hx Sleep Apnea: Yes Hx of CPAP: Yes Comment:: chronic sinusitis - CARDIOVASCULAR Hx Cardio Disorders: Yes Hx Cardiac Cath: Yes (2009) Hx Edema: Yes (right ankle) Hx Hypertension: Yes Hx Irregular Heartbeat: Yes (AFIB) - NEURO Hx Neuro Disorders: No - GI Hx GI Disorders: Yes Hx Reflux: Yes Hx Hiatal Hernia: Yes - Hx Genitourinary Disorders: Yes Hx Bladder Problem: Yes Hx Kidney Stones: Yes Hx UTI: Yes Comment:: chronic UTI - ENDOCRINE Hx Endocrine Disorders: Yes Hx Thyroid Disease: Yes - MUSCULOSKELETAL Hx Musculoskeletal Disorders: Yes Hx Arthritis: Yes - PSYCH Hx Psych Problems: No - HEMATOLOGY/ONCOLOGY Hx Hematology/Oncology Disorders: No Family Medical History Hx Anxiety: Brother/Sister Hx Diabetes: Mother Hx Heart Disease: Father, Mother, Brother/Sister, Grandparents Hx HTN: Brother/Sister Hx Resp Disorders: Father Physical Exam - General General Appearance: Alert, Oriented x3, Cooperative, No acute distress Limitations: No limitations - Head Head exam: Atraumatic, Normal inspection - Eye Eye exam: Normal appearance. negative: Conjunctival injection - ENT ENT exam: Normal exam Ear exam: Normal external inspection Nasal Exam: Normal inspection Mouth exam: Normal external inspection - Neck Neck exam: Normal inspection - Respiratory Respiratory exam: Normal lung sounds bilaterally - Cardiovascular Cardiovascular Exam: Regular rate, Normal rhythm, Normal heart sounds - GI/Abdominal GI/Abdominal exam: Soft, Other (Obese). negative: Distended, Guarding, Tenderness - Rectal Rectal exam: Fecal impaction, Heme (+) stool, Normal rectal tone. negative: Black stool, Bloody stool, Decreased rectal tone, Heme (-) stool, Hemorrhoids (Fissure of the anus likely source for blood) - Extremities Extremities exam: Normal inspection - Back Back exam: Denies: CVA tenderness (R), CVA tenderness (L) - Neurological Neurological exam: Alert, Oriented X3 - Psychiatric Psychiatric exam: Normal affect, Normal mood. negative: Agitated, Anxious - Skin Skin exam: Dry, Intact, Normal color, Warm Course Vital Signs 09/03/18 22:13 Temperature 97.9 F Pulse Rate [ 91 H Pulse Ox Probe] Respiratory 18 Rate Blood Pressure 170/81 [Left Arm] Pulse Ox 96 - Reevaluation(s) Reevaluation #1: 09/03/18 22:52 On rectal examination there is firm stool in the rectum consistent with impaction I was unable to digitally remove Enema was ordered Small fissure or irritated anal area noted at the 6 o clock area. Likely source of blood with forced pushing 09/03/18 23:13 The labs were reviewed No acute significant abnormality on the CBC or coags 09/03/18 23:34 The patient had an enema with good successful bowel movement She got symptomatic relief without significant blood We discussed continued home care with fiber and Miralax We discussed reasons to return and close follow up She lives with her sister and has very good home support Medical Decision Making - Lab Data Result diagrams: 09/03/18 22:35 Disposition Disposition: Discharge Clinical Impression: Fecal impaction in rectum, Constipation Disposition: Home, Self-Care Condition: (1) Good Instructions: Constipation (ED) Additional Instructions: Call your doctor for the next available follow up appointment Review this ER visit and the tests performed with your family doctor and soil scientist Return to the ER for a recheck if worse, any new concerns or questions Take the prescription of the Miralax provided as directed Prescriptions: Polyethylene Glycol 3350 [Miralax] 1 packet PO DAILY #14 packet Forms: Patient Portal Access Time of Disposition: 23:48 Quality - Quality Measures Quality Measures: N/A - Blood Pressure Screening Does Patient Have Any of the Following: Active Dx of HTN Blood Pressure Classification: Pre-Hypertensive BP Reading Systolic Measurement: 135 Diastolic Measurement: 74 Screening for High Blood Pressure: Patient Exclusion, Hx of HTN [G9744]
[2018-09-03 22:44] LABS: ABSOLUTE NEUTROPHIL COUNT 6.59; BASO % 0.4 % (0-6); GRAN % 67.6 % (47-80); HEMATOCRIT 39.6 % (35.0-47.0); HEMOGLOBIN 12.7 gm/dl (11.6-16.0); LYMPH % 22.1 % (16-45); MEAN CELL VOLUME 97.3 fl (81-97); MEAN CORPUSCULAR HEMOGLOBIN 31.2 pg (27-33); MEAN CORPUSCULAR HGB CONC 32.1 g/dl (32-36); MONO % 8.9 % (0-9); PLATELET COUNT 226 K/uL (130-400); RED BLOOD COUNT 4.07 M/uL (3.80-5.40); RED CELL DISTRIBUTION WIDTH 13.3 % (11.5-14.5); WHITE BLOOD COUNT W/O DIFF 9.8 K/uL (4.2-12.2)
[2018-09-03 22:58] LABS: PARTIAL THROMBOPLASTIN TIME 25.6 SECONDS (24.5-39.1); PROTHROMBIN TIME (PATIENT) 10.2 SECONDS (9.5-12.1)
== END 2018-09-04 00:05 | disposition home or self-care (01) ==
LOC: ER 21:44
DX: K59.00 Constipation, unspecified (principal); K60.2 Anal fissure, unspecified; I48.91 Unspecified atrial fibrillation; I10 Essential (primary) hypertension; Z79.01 Long term (current) use of anticoagulants; Z87.891 Personal history of nicotine dependence
CPT/HCPCS: 85025; 85610; 85730; 99283; 99284